=== PATIENT | male | born 1965 | race Two or more races ===

== ENCOUNTER 2023-12-11 15:14 | Emergency (ER) | payer BC ==
[~2023-12-11] VITALS: Ht 170.2 cm; Wt 120.0 kg
[2023-12-11 15:21] VITALS: BP 122/83; PULSE 82; RESP 18
[2023-12-11] MEDS: IBUPROFEN 600 MG TABLET PO ONE (15:46)
[2023-12-11] MEDS: ACETAMINOPHEN 500 MG TABLET PO ONE (15:46)
[2023-12-11 15:50] LABS: BASOPHILS % (AUTO) 0.7 % (0.0-2.0); EOSINOPHILS % (AUTO) 0.4 % (1.0-6.0); HEMATOCRIT 47.5 % (41-53); LYMPHOCYTES % (AUTO) 13.1 % (22.0-44.0); MEAN CORPUSCULAR HEMOGLOBIN 30.3 pg (26.0-34.0); MEAN CORPUSCULAR HGB CONC 33.7 G/dL (31.0-37.0); MEAN CORPUSCULAR VOLUME 90 fL (80-100); MONOCYTES # (AUTO) 1.3 K/uL (0.1-1.0); MONOCYTES % (AUTO) 8.1 % (2.0-9.0); NEUTROPHILS # (AUTO) 12.1 K/uL (1.8-7.7); NEUTROPHILS % (AUTO) 77.7 % (40.0-70.0); RED BLOOD CELL COUNT(AUTO) 5.29 MIL/uL (4.50-5.90); RED CELL DISTRIBUTION WIDTH 14.4 % (11.5-14.5); WHITE BLOOD COUNT (AUTO) 15.6 K/uL (4.5-11.0)
[2023-12-11 15:59] LABS: ANION GAP 9 mmol/L (8-16); CALCIUM, TOTAL 9.1 mg/dL (8.8-10.5); CARBON DIOXIDE 27 mmol/L (22-29); CHLORIDE 102 mmol/L (98-107); CREATININE 1.15 mg/dL (0.60-1.30); GLOMERULAR FILTR. RATE CALC > 60 mL/min (>60); GLUCOSE,RANDOM 107 mg/dL (70-110); POTASSIUM 4.2 mmol/L (3.5-5.1); SODIUM SERUM 138 mmol/L (136-145); UREA NITROGEN, BLOOD 15 mg/dL (7-18)
[2023-12-11 16:06] LABS: ALANINE AMINOTRANSFERASE 54 U/L (12-78); ALBUMIN 3.8 g/dL (3.4-5.0); ALKALINE PHOSPHATASE 71 U/L (46-116); ASPARTATE AMINOTRANSFERASE 26 U/L (15-37); BILIRUBIN,TOTAL 1.6 mg/dL (0.1-1.0); LIPASE 51 U/L (16-77); TOTAL PROTEIN, SERUM 7.9 g/dL (6.4-8.2)
[2023-12-11 16:07] LABS: LACTIC ACID 1.8 mmol/L (0.4-2.0); TROPONIN I-HIGH SENSITIVITY 6 ng/L (<76)
[2023-12-11 16:27] LABS: PLATELET COUNT (AUTO) 191 K/uL (150-450); PLATELET MORPHOLOGY COMMENT LARGE PLTS PRESENT
[2023-12-11 16:35] LABS: INFLUENZA A-RTPCR,COMBO NEGATIVE (NEGATIVE); INFLUENZA B-RTPCR,COMBO NEGATIVE (NEGATIVE); RESPIRATORY SYNCYTIAL VRS-PCR NEGATIVE (NEGATIVE); SARS COVID19 RTPCR, COMBO NEGATIVE (NEGATIVE)
[2023-12-11 16:42] LABS: APPEARANCE,URINE CLEAR (CLEAR); BILIRUBIN,URINE NEGATIVE (NEGATIVE); COLOR,URINE LIGHT YELLOW (YELLOW); GLUCOSE, URINE (UA) NEGATIVE (NEGATIVE); KETONES,URINE NEGATIVE (NEGATIVE); LEUKOCYTE ESTERASE ,URINE MODERATE (NEGATIVE); NITRATE,URINE NEGATIVE (NEGATIVE); OCCULT BLOOD,URINE NEGATIVE (NEGATIVE); PH,URINE 6.5 (5.0-8.0); PROTEIN,URINE NEGATIVE (NEGATIVE); SPECIFIC GRAVITIY, URINE 1.017 (1.003-1.030); UROBILINOGEN,URINE <=1.0 mg/dL (<=1.0)
[2023-12-11 16:51] LABS: RBC,URINE None Seen /HPF (0-2)
[2023-12-11 16:52] LABS: BACTERIA,URINE Rare /HPF (None Seen)
[2023-12-11 19:07] VITALS: TEMP 98.7
[2023-12-11] MEDS ORDERED: PHEN-674 PO (19:32)
[2023-12-11] MEDS ORDERED: ONDA-104 PO (19:32)
[2023-12-11] MEDS ORDERED: IBUP-1554 PO (19:32)
[2023-12-11] MEDS ORDERED: CEPH-558 PO (19:32)
[2023-12-11] MEDS ORDERED: ACET-66 PO (19:32)
[2023-12-11] MEDS: LEVOFLOXACIN 500 MG TABLET PO ONE (19:38)
[2023-12-11] MEDS: CEPHALEXIN MONOHYDRATE 500 MG CAPSULE PO ONE (19:39)
== END 2023-12-11 19:46 | disposition home or self-care (01) ==
LOC: EMS 15:14
DX: N39.0 Urinary tract infection, site not specified (principal); Z20.822 Contact with and (suspected) exposure to COVID-19
CPT/HCPCS: 99284; 0241U; 80053; 81001; 83605; 83690; 84484; 85025; 36415; 87086; 87186

== ENCOUNTER 2024-01-29 10:05 | Emergency (ER) | payer BC ==
[~2024-01-29] VITALS: Ht 170.2 cm; Wt 120.0 kg
[~2024-01-29 10:05] MED LIST: ACET-66 PO; CEPH-558 PO; IBUP-1554 PO; ONDA-104 PO; PHEN-674 PO
[2024-01-29 10:09] VITALS: BP 140/92; PULSE 72; RESP 16; TEMP 97.9
[2024-01-29] MEDS ORDERED: AMOX500C2 PO (12:39)
[2024-01-29] MEDS ORDERED: HYDR-4062 PO (12:39)
[2024-01-29] MEDS ORDERED: IBUP-1554 PO (12:39)
== END 2024-01-29 13:43 | disposition home or self-care (01) ==
LOC: EMS 10:05
DX: K04.7 Periapical abscess without sinus (principal)
CPT/HCPCS: 99283

== ENCOUNTER 2024-02-15 14:52 | Inpatient (IN) | payer BC, MEDICARE ==
[~2024-02-15] VITALS: Ht 170.2 cm; Wt 112.5 kg
[~2024-02-15 14:52] MED LIST changes: +AMOX500C2 PO; +HYDR-4062 PO
[2024-02-15 15:51] LABS: APPEARANCE,URINE HAZY (CLEAR); BILIRUBIN,URINE NEGATIVE (NEGATIVE); COLOR,URINE YELLOW (YELLOW); GLUCOSE, URINE (UA) 300-500 mg/dL (NEGATIVE); KETONES,URINE TRACE mg/dL (NEGATIVE); LEUKOCYTE ESTERASE ,URINE LARGE (NEGATIVE); NITRATE,URINE NEGATIVE (NEGATIVE); OCCULT BLOOD,URINE MODERATE (NEGATIVE); PH,URINE 6.5 (5.0-8.0); PROTEIN,URINE 30-70 mg/dL (NEGATIVE); SPECIFIC GRAVITIY, URINE 1.027 (1.003-1.030)
[2024-02-15 16:04] LABS: BACTERIA,URINE Few /HPF (None Seen); RBC,URINE 26-50 /HPF (0-2); SQUAMOUS EPITHELIAL CELL,UR Rare /LPF (None Seen); WBC,URINE 51-100 /HPF (0-5)
[2024-02-15] MEDS ORDERED: 0.9% SODIUM CHLORIDE 10 ML SYRINGE IVP PRN (17:30)
[2024-02-15 17:46] LABS: BASOPHILS % (AUTO) 0.5 % (0.0-2.0); EOSINOPHILS % (AUTO) 0.1 % (1.0-6.0); HEMATOCRIT 46.8 % (41-53); HEMOGLOBIN 15.6 g/dL (13.5-17.5); LYMPHOCYTES # (AUTO) 2.4 K/uL (1.0-4.8); MEAN CORPUSCULAR HEMOGLOBIN 29.5 pg (26.0-34.0); MEAN CORPUSCULAR HGB CONC 33.3 G/dL (31.0-37.0); MEAN CORPUSCULAR VOLUME 89 fL (80-100); MONOCYTES # (AUTO) 2.4 K/uL (0.1-1.0); MONOCYTES % (AUTO) 10.2 % (2.0-9.0); NEUTROPHILS # (AUTO) 19.1 K/uL (1.8-7.7); NEUTROPHILS % (AUTO) 79.2 % (40.0-70.0); PLATELET COUNT (AUTO) 235 K/uL (150-450); RED BLOOD CELL COUNT(AUTO) 5.28 MIL/uL (4.50-5.90); RED CELL DISTRIBUTION WIDTH 15.4 % (11.5-14.5); WHITE BLOOD COUNT (AUTO) 24.1 K/uL (4.5-11.0)
[2024-02-15] MEDS: SODIUM CHLORIDE 0.9% 2,000 ML IV ONE (17:48)
[2024-02-15] MEDS: CefTRIAXone 1 GM/DEXTROSE 50 ML IV ONE (17:48)
[2024-02-15 17:56] LABS: ANION GAP 11 mmol/L (8-16); CALCIUM, TOTAL 9.3 mg/dL (8.8-10.5); CARBON DIOXIDE 26 mmol/L (22-29); CHLORIDE 99 mmol/L (98-107); CREATININE 1.18 mg/dL (0.60-1.30); GLOMERULAR FILTR. RATE CALC > 60 mL/min (>60); GLUCOSE,RANDOM 129 mg/dL (70-110); SODIUM SERUM 136 mmol/L (136-145); UREA NITROGEN, BLOOD 17 mg/dL (7-18)
[2024-02-15 17:58] LABS: INR 1.1 (0.9-1.1); PROTHROMBIN TIME 11.9 SEC (9.4-11.6)
[2024-02-15 18:02] LABS: ALBUMIN 3.6 g/dL (3.4-5.0); ALKALINE PHOSPHATASE 85 U/L (46-116); ASPARTATE AMINOTRANSFERASE 27 U/L (15-37); TOTAL PROTEIN, SERUM 8.4 g/dL (6.4-8.2)
[2024-02-15 18:03] LABS: B-TYPE NATRIURETIC PEPTIDE 16 pg/mL (0-100)
[2024-02-15 18:04] LABS: TROPONIN I-HIGH SENSITIVITY 4 ng/L (<76)
[2024-02-15 18:25] LABS: ALANINE AMINOTRANSFERASE 50 U/L (12-78)
[2024-02-15] MEDS ORDERED: ONDANSETRON HCL 4 MG/2 ML VIAL IVP PRN (19:45)
[2024-02-15] MEDS: DOCUSATE SODIUM 100 MG CAPSULE PO SCH (21:00)
[2024-02-15 22:07] VITALS: BP 140/89; PULSE 110; RESP 18; TEMP 99.2
[2024-02-15 22:17] VITALS: BP 137/85; PULSE 115
[2024-02-15] MEDS ORDERED: INSULIN LISPRO 100 UNITS/ML SQ PRN (22:45)
[2024-02-15] MEDS ORDERED: DEXTROSE 50%-WATER 25 GM/50 ML SYRINGE IVP PRN (22:45)
[2024-02-15] MEDS: ACETAMINOPHEN 325 MG TABLET PO PRN (23:18)
[2024-02-15] MEDS ORDERED: SODIUM CHLORIDE 0.9% 500 ML IV ONE (23:27)
[2024-02-15] MEDS: PIPERACILLIN/TAZO 3.375 GM/D5W 50 ML IV SCH (23:30)
[2024-02-15] MEDS: HEPARIN SODIUM,PORCINE 5,000 UNITS/ML VIAL SQ SCH (23:43)
[2024-02-16] VITALS (9 sets, daily range): BP systolic 128–143; BP diastolic 78–95; PULSE 86–112; RESP 17–19; TEMP 98.2–100.6
[2024-02-16] MEDS: LEVOFLOXACIN 750 MG/D5% WATER 150 ML IV SCH (00:05)
[2024-02-16 05:41] LABS: GLUCOMETER DEV NAME(LOC) 5N.2C; GLUCOSE,POINT OF CARE 140 MG/DL (70-110)
[2024-02-16 06:57] LABS: BASOPHILS % (AUTO) 0.6 % (0.0-2.0); EOSINOPHILS % (AUTO) 0.1 % (1.0-6.0); HEMATOCRIT 42.4 % (41-53); HEMOGLOBIN 14.3 g/dL (13.5-17.5); LYMPHOCYTES # (AUTO) 1.8 K/uL (1.0-4.8); LYMPHOCYTES % (AUTO) 10.4 % (22.0-44.0); MEAN CORPUSCULAR HGB CONC 33.8 G/dL (31.0-37.0); MEAN CORPUSCULAR VOLUME 89 fL (80-100); MONOCYTES # (AUTO) 1.7 K/uL (0.1-1.0); NEUTROPHILS # (AUTO) 13.5 K/uL (1.8-7.7); NEUTROPHILS % (AUTO) 78.9 % (40.0-70.0); PLATELET COUNT (AUTO) 189 K/uL (150-450); RED BLOOD CELL COUNT(AUTO) 4.78 MIL/uL (4.50-5.90); RED CELL DISTRIBUTION WIDTH 14.8 % (11.5-14.5); WHITE BLOOD COUNT (AUTO) 17.1 K/uL (4.5-11.0)
[2024-02-16 08:02] LABS: ALBUMIN 2.9 g/dL (3.4-5.0); ALKALINE PHOSPHATASE 66 U/L (46-116); ANION GAP 9 mmol/L (8-16); ASPARTATE AMINOTRANSFERASE 20 U/L (15-37); BILIRUBIN,TOTAL 1.9 mg/dL (0.1-1.0); CALCIUM, TOTAL 8.6 mg/dL (8.8-10.5); CARBON DIOXIDE 24 mmol/L (22-29); CHLORIDE 103 mmol/L (98-107); CREATININE 0.92 mg/dL (0.60-1.30); GLOMERULAR FILTR. RATE CALC > 60 mL/min (>60); GLUCOSE,RANDOM 117 mg/dL (70-110); POTASSIUM 3.9 mmol/L (3.5-5.1); SODIUM SERUM 136 mmol/L (136-145); TOTAL PROTEIN, SERUM 7.2 g/dL (6.4-8.2); UREA NITROGEN, BLOOD 12 mg/dL (7-18)
[2024-02-16 08:46] LABS: ALANINE AMINOTRANSFERASE 37 U/L (12-78)
[2024-02-16 11:45] LABS: GLUCOMETER DEV NAME(LOC) 5N.1D; GLUCOSE,POINT OF CARE 126 MG/DL (70-110)
[2024-02-16 14:11] LABS: GLUCOMETER DEV NAME(LOC) 5S.1B; GLUCOSE,POINT OF CARE 132 MG/DL (70-110)
[2024-02-16 21:25] LABS: GLUCOMETER DEV NAME(LOC) 5N.1D; GLUCOSE,POINT OF CARE 130 MG/DL (70-110)
[2024-02-16 21:26] LABS: GLUCOMETER DEV NAME(LOC) 5S.1B; GLUCOSE,POINT OF CARE 131 MG/DL (70-110)
[2024-02-17] VITALS: BP 132/86; PULSE 85; RESP 17; TEMP 98.5
[2024-02-17 04:00] VITALS: BP 138/94; PULSE 91; RESP 18; TEMP 98.3
[2024-02-17 05:46] LABS: BASOPHILS % (AUTO) 0.4 % (0.0-2.0); EOSINOPHILS % (AUTO) 0.2 % (1.0-6.0); HEMATOCRIT 43.6 % (41-53); HEMOGLOBIN 14.6 g/dL (13.5-17.5); LYMPHOCYTES # (AUTO) 2.1 K/uL (1.0-4.8); LYMPHOCYTES % (AUTO) 12.2 % (22.0-44.0); MEAN CORPUSCULAR HEMOGLOBIN 29.9 pg (26.0-34.0); MEAN CORPUSCULAR HGB CONC 33.5 G/dL (31.0-37.0); MEAN CORPUSCULAR VOLUME 89 fL (80-100); MONOCYTES # (AUTO) 1.6 K/uL (0.1-1.0); MONOCYTES % (AUTO) 9.1 % (2.0-9.0); NEUTROPHILS # (AUTO) 13.6 K/uL (1.8-7.7); NEUTROPHILS % (AUTO) 78.1 % (40.0-70.0); PLATELET COUNT (AUTO) 225 K/uL (150-450); RED BLOOD CELL COUNT(AUTO) 4.89 MIL/uL (4.50-5.90); RED CELL DISTRIBUTION WIDTH 15.1 % (11.5-14.5); WHITE BLOOD COUNT (AUTO) 17.4 K/uL (4.5-11.0)
[2024-02-17 07:39] VITALS: BP 140/85; PULSE 84; RESP 20; TEMP 98
[2024-02-17 10:06] LABS: GLUCOMETER DEV NAME(LOC) 5S.1B; GLUCOSE,POINT OF CARE 121 MG/DL (70-110)
[2024-02-17 12:47] VITALS: BP 129/75; PULSE 88; RESP 20; TEMP 98
[2024-02-17 15:53] VITALS: BP 128/90; PULSE 72; RESP 20; TEMP 98.1
[2024-02-17 17:41] LABS: GLUCOMETER DEV NAME(LOC) 5N.2C; GLUCOSE,POINT OF CARE 114 MG/DL (70-110)
[2024-02-17 20:25] VITALS: BP 124/87; PULSE 91; RESP 19; TEMP 98.2
[2024-02-17 22:41] LABS: GLUCOMETER DEV NAME(LOC) 5S.1B; GLUCOSE,POINT OF CARE 115 MG/DL (70-110)
[2024-02-18] VITALS (7 sets, daily range): BP systolic 123–135; BP diastolic 80–95; PULSE 60–79; RESP 18–19; TEMP 97.7–98.2
[2024-02-18 10:33] LABS: EOSINOPHILS % (AUTO) 2.5 % (1.0-6.0); HEMATOCRIT 44.6 % (41-53); HEMOGLOBIN 15.1 g/dL (13.5-17.5); LYMPHOCYTES # (AUTO) 2.4 K/uL (1.0-4.8); LYMPHOCYTES % (AUTO) 25.1 % (22.0-44.0); MEAN CORPUSCULAR HEMOGLOBIN 30.2 pg (26.0-34.0); MEAN CORPUSCULAR VOLUME 89 fL (80-100); MONOCYTES # (AUTO) 1.1 K/uL (0.1-1.0); MONOCYTES % (AUTO) 11.8 % (2.0-9.0); NEUTROPHILS # (AUTO) 5.6 K/uL (1.8-7.7); NEUTROPHILS % (AUTO) 59.6 % (40.0-70.0); PLATELET COUNT (AUTO) 293 K/uL (150-450); RED CELL DISTRIBUTION WIDTH 15.2 % (11.5-14.5); WHITE BLOOD COUNT (AUTO) 9.4 K/uL (4.5-11.0)
[2024-02-18 17:21] LABS: GLUCOMETER DEV NAME(LOC) 5S.2D; GLUCOSE,POINT OF CARE 115 MG/DL (70-110)
[2024-02-18 17:22] LABS: GLUCOMETER DEV NAME(LOC) 5S.2D; GLUCOSE,POINT OF CARE 107 MG/DL (70-110)
[2024-02-18 20:16] LABS: GLUCOMETER DEV NAME(LOC) 5S.2D; GLUCOSE,POINT OF CARE 107 MG/DL (70-110)
[2024-02-18 20:16] LABS: GLUCOMETER DEV NAME(LOC) 5N.2C; GLUCOSE,POINT OF CARE 122 MG/DL (70-110)
[2024-02-19 01:56] LABS: GLUCOMETER DEV NAME(LOC) 5S.1B; GLUCOSE,POINT OF CARE 117 MG/DL (70-110)
[2024-02-19 04:08] VITALS: BP 140/89; PULSE 61; RESP 18; TEMP 98.1
[2024-02-19 07:58] VITALS: BP 144/94; PULSE 64; RESP 18; TEMP 98.1
[2024-02-19 08:06] VITALS: BP 139/92; RESP 18
[2024-02-19] MEDS ORDERED: LEVO-72 PO (08:55)
[2024-02-19 10:56] LABS: GLUCOMETER DEV NAME(LOC) 6N.2B; GLUCOSE,POINT OF CARE 109 MG/DL (70-110)
== END 2024-02-19 10:30 | disposition home or self-care (01) | DRG 872 ==
LOC: EMS 14:52 → 5S 21:47 → 6N 02-18 23:23
PROVIDERS: ADMIT Internal Medicine; ATTEND Internal Medicine
DX: A41.9 Sepsis, unspecified organism (principal); N39.0 Urinary tract infection, site not specified; E66.01 Morbid (severe) obesity due to excess calories; E11.9 Type 2 diabetes mellitus without complications; R09.02 Hypoxemia; Z68.39 Body mass index [BMI] 39.0-39.9, adult; Z87.440 Personal history of urinary (tract) infections
CPT/HCPCS: 71045; 76770; 80048; 80053; 80076; 81001; 82962; 83605; 83735; 83880; 84145; 84484; 85025; 85610; 87040; 87086; 87186; 93005; 99285; J0696; J1644; J1956; J2543; J7030; J7040; 36415-L1; 36415-TC